=== PATIENT | female | born 1945 | race Caucasian/White ===

== ENCOUNTER 2023-07-19 17:11 | Observation (INO) | payer MEDICARE, OTHER ==
[~2023-07-19] VITALS: Ht 165.1 cm; Wt 57.6 kg
[2023-07-19 17:21] LABS: HEMOGLOBIN 9.9 g/dL (12.0-18.0)
[2023-07-19 17:23] LABS: EOSINOPHILS 1.4 % (0-6); HEMATOCRIT 29.4 % (35.0-50.0); LYMPHOCYTES 26.6 % (24-44); MCH 31.6 (27-36); MCHC 33.8 g/dl (30-36); MCV 93.5 fl (81-99); MONOCYTES 10.3 % (0-12); NEUTROPHILS 60.7 % (39-80); PLATELET COUNT 252 K/uL (140-440); RBC 3.14 M/ul (4.3-5.7)
[2023-07-19] MEDS ORDERED: LEVOTHYROXINE125 MC1 PO (17:35)
[2023-07-19] MEDS ORDERED: ZOCOR40 MG PO (17:37)
[2023-07-19] MEDS ORDERED: COREG3.125 MG PO (17:37)
[2023-07-19] MEDS ORDERED: JANTOVEN3 MG PO (17:37)
[2023-07-19] MEDS ORDERED: HYDROCHLOROTH12.5 MG PO (17:39)
[2023-07-19] MEDS ORDERED: CETIRIZINE HCL5 M1 PO (17:40)
[2023-07-19 17:45] LABS: PARTIAL THROMBOPLASTIN TIME 43.4 Sec (22.9-41.3)
[2023-07-19 17:46] LABS: INR 2.18 (0.80-1.30); PROTIME 23.4 Sec (11.2-14.2)
[2023-07-19 17:49] LABS: ALBUMIN 3.7 g/dL (3.4-5.0); ALBUMIN/GLOBULIN RATIO 1.12 (1.1-2.4); ANION GAP 15.1 (7-21); BILIRUBIN, TOTAL 0.4 ng/dL (0.2-1.0); BUN/CREATININE RATIO 25.38 (6.0-28.6); CALCIUM 9.2 mg/dL (8.5-10.1); CREATININE, SERUM 1.3 mg/dL (0.55-1.02); POTASSIUM 4.1 mmol/L (3.5-5.1)
[2023-07-19 20:28] VITALS: BP 161/78
--- NOTE | 2023-07-19 20:30 | NUR ---
PT TO FLOOR WITH ED RN VIA STRETCHER. PT ALERT AND ORIENTED. ABLE TO TRANSFER SELF FROM STRETCHER TO BR WITH SBA. GAIT "WOBBLY." BACK TO BED, LILIAN WELL. BEDSIDE REPORT RECEIVED FROM ED RN. ORDERS RECEIVED. ADMISSION HISTORY COMPLETE BY ASSISTANT ASSOCIATE PROFESSOR. VS WNL. TELE #3 PLACED. HR 100'S. NEURO ASSESSMENT WNL. QUALITY CONTROL CHECKER STRENGTH EQUAL BILAT. PT DENIES HEADACHE OR VISUAL DISTURBANCES. CMS INTACT. SON AT BEDSIDE. PT ORIENTED TO ROOM AND NURSE CALL LIGHT. DENIES QUESTIONS OR CONCERNS. CALL LIGHT IN REACH.
[2023-07-19] MEDS ORDERED: ATORVASTATIN CA80 MG PO (20:38)
[2023-07-19] MEDS ORDERED: ARTHRITIS PAIN150 GM TOP (20:40)
--- NOTE | 2023-07-20 00:12 | NUR ---
PT RESTING IN BED WITH EYES CLOSED LYING ON LEFT SIDE. RESPIRATIONS EVEN. TELE #3. HR 80'S. CALL LIGHT IN REACH. BED ALARM FOR SAFETY.
--- NOTE | 2023-07-20 00:35 | NUR ---
CALL LIGHT ANSWERED. PT UP TO BR WITH SBA TO VOID. GAIT UNSTEADY AT TIMES. PT WITH HX ARTHRITIS IN KNEES WHICH SHE REPORTS MAKES IT DIFFICULT TO AMB SMOOTHLY. PRN FOR PAIN ADMIN PER EMAR. NEURO ASSESSMENT UNCHANGED. MRI SCREENING COMPLETE. WARM BLANKET PROVIDED. NO FURTHER NEEDS. BED ALARM FOR SAFETY.
[2023-07-20 01:58] VITALS: BP 112/60
--- NOTE | 2023-07-20 02:02 | NUR ---
PT RESTING WITH EYES CLOSED. AWAKENS EASILY. VS AND I&O OBTAINED. ASSESSMENT UNCHANGED. PT DENIES NEEDS. CALL LIGHT IN REACH. BED ALARM IN PLACE.
--- NOTE | 2023-07-20 04:26 | NUR ---
PT RESTING IN BED WITH EYES CLOSED. RESPIRATIONS EVEN. HR 70'S. TELE #3. SR. BED ALARM FOR SAFETY.
[2023-07-20 05:21] LABS: EOSINOPHILS 1.3 % (0-6); HEMOGLOBIN 9.4 g/dL (12.0-18.0)
[2023-07-20 05:23] LABS: BASOPHILS 0.8 % (0-2); HEMATOCRIT 28.2 % (35.0-50.0); LYMPHOCYTES 21.3 % (24-44); MCH 31.4 (27-36); MCHC 33.5 g/dl (30-36); MCV 93.9 fl (81-99); MONOCYTES 10.6 % (0-12); PLATELET COUNT 205 K/uL (140-440)
[2023-07-20 05:52] LABS: ANION GAP 9.7 (7-21); BUN/CREATININE RATIO 24.77 (6.0-28.6); CHOLESTEROL/HDL RATIO 2.7; CREATININE, SERUM 1.09 mg/dL (0.55-1.02); POTASSIUM 3.7 mmol/L (3.5-5.1)
--- NOTE | 2023-07-20 05:56 | EKG ---
[facility] [address] [place], [place] [address] Signed Sinus rhythm with 1st degree AV block Right bundle branch block Left anterior fascicular block Bifascicular block Abnormal ECG No previous ECGs available Confirmed by TYRESE HUNT MD ([id number] on 07/20/2023 5:56:35 AM Electronically Signed By: TYRESE HUNT 07/20/23 0556 PATIENT NAME: KAIA TALLEY Electrocardiogram DATE OF : 47 PHYSICIAN: TYRESE HUNT REPORT #: [id number] REPORT IS CONFIDENTIAL AND NOT TO BE RELEASED WITHOUT AUTHORIZATION
[2023-07-20 06:11] LABS: INR 1.98 (0.80-1.30); PROTIME 21.8 Sec (11.2-14.2)
[2023-07-20 06:15] VITALS: BP 146/73
--- NOTE | 2023-07-20 06:26 | NUR ---
PT RESTING WITH EYES CLOSED. AWAKENS EASILY. VS AND I&O OBTAINED. PT UP TO BR WITH FWW AND SBA TO VOID. BACK TO BED, LILIAN WELL. GAIT STEADY. PRN FOR KNEE PAIN ADMIN PER EMAR. SCHEDULED MEDS ADMIN. NEURO ASSESSMENT WNL. PT DENIES SX. NO FURTHER NEEDS. CALL LIGHT IN REACH.
--- NOTE | 2023-07-20 07:30 | NUR ---
RECEIVED REPORT FROM BRIDGE IRONWORKER HELPER RN. PT IS RESTING IN BED. NO NEEDS VOICED AT THE MOMENT. CALL LIGHT WITHIN REACH.
[2023-07-20 09:36] VITALS: BP 108/66
[2023-07-20] MEDS ORDERED: LEVOTHYROXINE150 MCG PO (10:12)
[2023-07-20] MEDS ORDERED: CETIRIZINE HCL10 MG PO (10:13)
[2023-07-20] MEDS ORDERED: CARVEDILOL6.25 MG PO (10:14)
--- NOTE | 2023-07-20 11:41 | NUR ---
PERFORMED [facility] ASSESSMENT ON PT. LEFT SIDE FACIAL DROOP NOTED MORE THAN THIS MORNING. NOTIFIED. [facility] CHARTED IN INTERVENTIONS.
[2023-07-20 13:00] VITALS: BP 131/71
== END 2023-07-20 13:15 | disposition home or self-care (01) ==
LOC: ED 17:11 → MS 17:13
PROVIDERS: Emergency Medicine; ADMIT Family Medicine; ATTEND Family Medicine
DX: G45.9 Transient cerebral ischemic attack, unspecified (principal); I10 Essential (primary) hypertension; E78.5 Hyperlipidemia, unspecified; E03.9 Hypothyroidism, unspecified; Z95.4 Presence of other heart-valve replacement; Z88.5 Allergy status to narcotic agent; Z79.890 Hormone replacement therapy; Z79.899 Other long term (current) drug therapy
CPT/HCPCS: 36415; 70450; 70496; 70498; 71045; 80048; 80053; 80061; 83036; 85025; 85610; 85730; 93005; 93010; 97116; 97161; A9270; G0378; J7040; Q9967